=== PATIENT | female | born 2000 | race Caucasian/White ===

== ENCOUNTER 2022-04-13 22:03 | Emergency (ER) | payer SELFPAY ==
[~2022-04-13] VITALS: Ht 160 cm; Wt 54.5 kg
[~2022-04-13 22:03] MED LIST: IBUP-1985 PO
[2022-04-13 22:04] VITALS: BP 115/68
[2022-04-14] MEDS ORDERED: CEPH-585 PO (00:47)
[2022-04-14] MEDS ORDERED: TETanus/Pertussis (Acell)/Diphther VAC/PF (Tdap-Adult) 0.5ml syringe IMVAC ONE (00:50)
== END 2022-04-14 01:29 | disposition home or self-care (01) ==
LOC: ER 22:03
DX: S90.812A Abrasion, left foot, initial encounter (principal); Z79.2 Long term (current) use of antibiotics; X58.XXXA Exposure to other specified factors, initial encounter; Y93.89 Activity, other specified; Y92.89 Other specified places as the place of occurrence of the external cause; Y99.8 Other external cause status
CPT/HCPCS: 73630; 90471; 90715; 99283